=== PATIENT | male | born 1955 | race Caucasian/White ===

== ENCOUNTER 2021-04-13 10:07 | Day surgery (SDC) | payer BC ==
[~2021-04-13 10:07] MED LIST: Lactated Ringers 1,000 ML IV SCH
[2021-04-13] MEDS: Lactated Ringers 1,000 ML IV SCH (10:39)
[2021-04-13] MEDS ORDERED: Propofol 200 MG/20 ML SDV ONE ×2 (11:07→12:06)
[2021-04-13] MEDS ORDERED: fentaNYL 100 MCG/2 ML SDV ONE (11:07)
--- NOTE | 2021-04-13 14:40 | OR ---
PREOPERATIVE DIAGNOSIS: Screening colonoscopy. POSTOPERATIVE DIAGNOSIS: Screening colonoscopy. PROCEDURE PERFORMED: Screening colonoscopy. COMPLICATIONS: None. SPECIMENS: None. ESTIMATED BLOOD LOSS: 5 mL. ANESTHESIA: Sedation. PROCEDURE IN DETAIL: This was done in the endoscopy suite. Sedation was given per Anesthesia. He was placed in left lateral position. First, a rectal exam was done and was normal. Scope was introduced through the rectum, sigmoid, descending, transverse, and ascending colon until the cecum was reached. Upon reaching the cecum, scope was slowly withdrawn looking at all mucosal surfaces on the way out. No mucosal abnormalities, lesions, or polyps were noted. He did have moderate sigmoid diverticulosis. FINAL DIAGNOSIS: Sigmoid diverticulosis. BKD: 04/13/2021 12:29:11 MODL: 04/13/2021 13:38:49 /[id number]
== END 2021-04-13 13:30 | disposition home or self-care (01) ==
LOC: VM.SDS 10:07
PROVIDERS: ATTEND Surgery
DX: Z12.11 Encounter for screening for malignant neoplasm of colon (principal); K57.30 Diverticulosis of large intestine without perforation or abscess without bleeding; I10 Essential (primary) hypertension; E78.5 Hyperlipidemia, unspecified; M47.816 Spondylosis without myelopathy or radiculopathy, lumbar region; Z88.1 Allergy status to other antibiotic agents; Z88.0 Allergy status to penicillin; Z88.2 Allergy status to sulfonamides; Z88.5 Allergy status to narcotic agent; Z88.8 Allergy status to other drugs, medicaments and biological substances; Z79.899 Other long term (current) drug therapy; Z86.010 Personal history of colon polyps
CPT/HCPCS: 00811; J2704; J3010; J7120